=== PATIENT | female | born 1970 | race Caucasian/White ===

== ENCOUNTER 2016-07-08 01:16 | Emergency (ER) | payer OTHER ==
[~2016-07-08 01:16] MED LIST: AFRIN15 ML; ALBUTEROL17 GM INH; AMITRIPTYLINE HC5 GM PO; AMOXICILLIN PO; ASPIRIN PO; AUGMENTIN PO; AUGMENTIN875 M1 PO; BACTRIM DS TABL1 TA1 PO; BACTRIM DS TABL1 TA2 PO; BACTRIM DS TABL1 TAB PO; BENZONATATE PO; CATAPRES-TTS-20.2 MG EXT; CATAPRES-TTS-20.2 MG PO; CATAPRES0.1 M1; CATAPRES0.1 M1 PO; CIPRO PO; CLONIDINE; CLONIDINE PO; CLONIDINE TOP; COLACE PO; DIFLUCAN PO; DOXYCYCLINE PO; FLEXERIL PO; FLONASE16 GM; K-LOR20 MEQ PO; KEFLEX500 MG PO; KETOPROFEN PO; LISINOPRIL PO; LISINOPRIL10 MG PO; LISINOPRIL5 MG PO; LOMOTIL TABLET1 TAB PO; LOPRESSOR PO; LORTAB 5/500 TA1 TA1 PO; LORTAB 7.5-5001 TAB PO; LOTRISONE CREAM45 GM TOP; MACROBID 100 M100 MG PO; MACROBID100 MG PO; MEDROL PO; METHADONE; METROGEL-VAGINA70 GM VG; MIRALAX17 GM PO; MOTRIN100 MG PO; NEURONTIN600 MG PO; NO MEDICATIONS; NORVASC PO; OPANA ER20 M1 PO; OXYCODONE HCL10 M1 PO; OXYCODONE HCL5 MG; PERCOCET 5-3251 TAB PO; PERCOCET 7.5/501 TA1 PO; PHENERGAN DM1 ML PO; PHENERGAN PO; PRINCIPEN500 M1 PO; PRINIVIL5 MG PO; PYRIDIUM PO; TOPROL XL; TYLENOL325 M1 PO; VICODIN 5/500 T1 TAB PO; VOLTAREN75 MG PO; ZITHROMAX PO; ZOFRAN ODT4 MG PO
== END 2016-07-08 04:24 | disposition home or self-care (01) ==
LOC: CED 01:16
DX: T40.1X1A Poisoning by heroin, accidental (unintentional), initial encounter (principal); Z79.899 Other long term (current) drug therapy
CPT/HCPCS: 96374; 96375; 99284; J2405

== ENCOUNTER 2016-07-14 21:12 | Emergency (ER) | payer OTHER ==
--- NOTE | ~2016-07-14 | CT71 ---
[facility] A Service of [facility] RADIOLOGY TEXT RESULTS PATIENT: PRATIBHA DEXTER LOCATION: JIAN : [birth year] UNIT #: [id number] AGE: [address]: Juan Michelle MD SEX: F ORDER DR: [id number] [facility] [address] [place], [place] [address] [id number] E MR#: [id number] Acc #: [id number] NAME: PRATIBHA DEXTER : 1970 SEX: F STUDY DATE/TIME: 07/14/2016 21:14 UNIT: [facility] ROOM: STUDY DESCRIPTION: CT Head Wo Contrast Attending Physician: Juan Michelle M.D. Ordering Physician: Juan Michelle M.D. Primary Care Physician: Trev Stanley M.D. MEDICAL IMAGING REPORT This report is preliminary unless electronic signature is present EXAM Noncontrast head CT HISTORY 45-year-old female, overdose on heroin, pulled from car, unresponsive, not breathing. TECHNIQUE This CT examination was performed with one or more of the following radiation dose reduction techniques: automatic exposure control, adjustment of mA and/or kV according to patient size, and iterative reconstruction. FINDINGS Axial noncontrast imaging of the brain demonstrates less than 1 cm area of decreased attenuation right basal ganglia compatible with lacunar infarct. This is unchanged from head CT 10/09/2015. No large vessel infarct. No mass, mass effect or midline shift. No hemorrhage or abnormal extraaxial fluid collections. Incidentally noted is a very large and tortuous left vertebral artery. Bony calvaria, skull base, mastoids, sinuses unremarkable. IMPRESSION No definite acute intracranial abnormality identified. Old right basal ganglia lacunar infarct. Dictated by... Lina Mota M.D. THIS IS AN ELECTRONICALLY VERIFIED REPORT Lina Mota M.D. at 07/15/2016 2:39 PM JMS/carmenzas [facility] A Service of [facility] RADIOLOGY TEXT RESULTS PATIENT: PRATIBHA DEXTER LOCATION: [facility] : [birth year] UNIT #: [id number] AGE: [address]: Juan Michelle MD SEX: F ORDER DR: TD: 07/15/2016 06:01 JOB #: [id number] MEDICAL IMAGING REPORT Page 1 of 1 COPY
== END 2016-07-14 22:36 | disposition home or self-care (01) ==
LOC: CED 21:12
DX: T40.1X1A Poisoning by heroin, accidental (unintentional), initial encounter (principal); S01.01XA Laceration without foreign body of scalp, initial encounter; F17.200 Nicotine dependence, unspecified, uncomplicated; W01.198A Fall on same level from slipping, tripping and stumbling with subsequent striking against other object, initial encounter
CPT/HCPCS: 70450; 90471; 90715; 96372; 99284; J2310

== ENCOUNTER 2017-01-11 20:48 | Emergency (ER) | payer OTHER ==
--- NOTE | ~2017-01-11 | CR71 ---
[facility] A Service of [facility] RADIOLOGY TEXT RESULTS PATIENT: PRATIBHA DEXTER LOCATION: SED : [birth year] UNIT #: [id number] AGE: [address]: Nia Garcia SEX: F ORDER DR: [id number] [place] [address] [id number] E MR#: [id number] Acc #: [id number] NAME: PRATIBHA DEXTER : 1970 SEX: F STUDY DATE/TIME: 01/11/2017 21:39 UNIT: SED ROOM: STUDY DESCRIPTION: CR Chest Single View Attending Physician: Nia Garcia Pa-C Ordering Physician: Nikolay Gonsalves Primary Care Physician: Trev Stanley M.D. MEDICAL IMAGING REPORT This report is preliminary unless electronic signature is present. EXAM Chest x-ray, 01/11. HISTORY Cough, congestion and fever for 3 weeks. COMPARISON 06/09/2016 FINDINGS A single AP portable view of the chest shows both lungs to be clear. The heart is normal in size. The mediastinal contour is normal. No significant bone abnormalities are seen. IMPRESSION Normal portable chest. Dictated by... Fred Gomez Jr., M.D. THIS IS AN ELECTRONICALLY VERIFIED REPORT Fred Gomez Jr., M.D. at 01/12/2017 10:02 AM OSBALDO/marito TD: 01/11/2017 23:21 JOB #: [id number] MEDICAL IMAGING REPORT Page 1 of 1
[2017-01-11 22:05] LABS: INFLUENZA A NEG (NEG); INFLUENZA B NEG (NEG)
== END 2017-01-11 22:35 | disposition home or self-care (01) ==
LOC: SED 20:48
PROVIDERS: Physician Assistant
DX: J01.90 Acute sinusitis, unspecified (principal); I10 Essential (primary) hypertension; F17.200 Nicotine dependence, unspecified, uncomplicated; N28.9 Disorder of kidney and ureter, unspecified
CPT/HCPCS: 71010; 87804; 99283